=== PATIENT | male | born 1995 | race Caucasian/White ===

== ENCOUNTER 2020-10-29 16:07 | Emergency (ER) | payer BC ==
[2020-10-29] MEDS ORDERED: HYDROmorphone 1 MG/ML 1 ML SYRINGE IVP STA (16:49)
--- NOTE | 2020-10-29 16:55 | ED ---
Skin/Abscess/FB HPI - General Chief complaint: Skin/Abscess/Foreign Body Stated complaint: nail through hand Time Seen by Provider: 10/29/20 16:46 Source: patient, RN notes reviewed Mode of arrival: ambulatory Limitations: no limitations - History of Present Illness Initial comments: A showed a 24-year-old male presents to emergency department with a left air nailer and nail through his left thumb. Hethat he went to the urgent care before coming to emergency department with a couple x-rays and updated his tetanus vaccine. He noted that he was trying to build shelves at home when he actually shot a nail through his left thumb. He states that his pain is currently an 8 out of 10 that is constant and progressively getting worse as the adrenaline wears off. He denied any ALLERGIES to medications. He denied any loss of sensation. He is stable was thumb with pain while the nail still in it. He denied any weakness chest pain shortness breath headache nausea vomiting diarrhea constipation fever fatigue chills. - Related Data Previous Rx's Medication Instructions Recorded Cephalexin [Keflex] 500 mg PO Q6HR #40 cap 10/29/20 Allergies Allergy/AdvReac Type Severity Reaction Status Date / Time No Known Allergies Allergy Verified 10/29/20 17:34 Review of Systems ROS Statement: Those systems with pertinent positive or pertinent negative responses have been documented in the HPI. ROS Other: All systems not noted in ROS Statement are negative. Past Medical History Past Medical History: No Reported History History of Any Multi-Drug Resistant Organisms: None Reported Past Surgical History: No Surgical Hx Reported Past Psychological History: No Psychological Hx Reported Smoking Status: Never smoker Past Alcohol Use History: Occasional Past Drug Use History: Marijuana General Exam Limitations: no limitations General appearance: alert, in no apparent distress Head exam: Present: atraumatic, normocephalic, normal inspection Eye exam: Present: normal appearance, PERRL, EOMI. Absent: scleral icterus, conjunctival injection, periorbital swelling ENT exam: Present: normal exam, mucous membranes moist Neck exam: Present: normal inspection. Absent: tenderness, meningismus, lymphadenopathy Respiratory exam: Present: normal lung sounds bilaterally. Absent: respiratory distress, wheezes, rales, rhonchi, stridor Cardiovascular Exam: Present: regular rate, normal rhythm, normal heart sounds. Absent: systolic murmur, diastolic murmur, rubs, gallop, clicks GI/Abdominal exam: Present: soft, normal bowel sounds. Absent: distended, tenderness, guarding, rebound, rigid Extremities exam: Present: normal inspection, full ROM, normal capillary refill, other (A she has a air nailer nail penetrating the entire thickness of his left thumb. Minimal blood.). Absent: tenderness, pedal edema, joint swelling, calf tenderness Neurological exam: Present: alert, oriented X3, CN II-XII intact Psychiatric exam: Present: normal affect, normal mood Skin exam: Present: warm, dry, intact, normal color. Absent: rash Course Vital Signs 10/29/20 16:15 Temperature 98.3 F Pulse Rate 60 Respiratory 16 Rate Blood Pressure 137/82 O2 Sat by Pulse 99 Oximetry Procedures - Forgein Body Removal Soft Tissue Consent Obtained: verbal consent Site: hand Anesthetic Used: lidocaine 1% Foreign Body Suspected: Metal Foreign Body Removed: yes Foreign Body Removal Technique: Instrumentation Complications: pain Patient Tolerated Procedure: well, no complications Medical Decision Making - Medical Decision Making 4-year-old male with nail penetrating fully through his left thumb. Left hand x-ray, 1 mg of Dilaudid ordered. Patient requesting more pain medication before nail removal. 1% lidocaine was used for a digital block of the left thumb. Pliers were used to remove the nail from the thumb. Patient tolerated procedure well. Case discussed with Dr. Israel, decided after removing the patient to discharge h ome on antibiotics. - Radiology Data Radiology results: report reviewed, image reviewed Left hand x-ray: Nail through the distal phalanx of left thumb, DIP appears intact. Disposition Clinical Impression: Foreign body (FB) in soft tissue Disposition: HOME SELF-CARE Condition: Stable Instructions (If sedation given, give patient instructions): Soft Tissue Foreign Body (ED) Additional Instructions: Please return to the Emergency Department if symptoms worsen or any other concerns. Follow-up with primary care in 2-5 days. Take antibiotics as prescribed until complete. Take [id number] pain medication as needed for symptom management. Keep thumb covered and clean dry dressing until exterior wounds heal. Is patient prescribed a controlled substance at d/c from ED?: No Referrals: Ha Smith DO [Primary Care Provider] - 1-2 days Time of Disposition: 18:24
--- NOTE | 2020-10-29 17:38 | XR ---
EXAMINATION TYPE: XR hand complete LT DATE OF EXAM: 10/29/2020 CLINICAL HISTORY: Trauma. TECHNIQUE: Frontal, lateral and oblique images of the left hand are obtained. COMPARISON: None. FINDINGS: There is a nail through the distal left thumb near the joint. The nail appears to traverse the distal phalanx. There is a fracture fragment seen in the volar aspect. The distal interphalangeal joint martinez ears intact. There is soft tissue swelling. IMPRESSION: Nail through the distal phalanx of the left thumb. The DIP joint in the left thumb appear s normal.
[2020-10-29] MEDS ORDERED: LIDOCAINE 1% INJ 10MG/ML (20 ML MDV) SQ ONE (17:39)
[2020-10-29] MEDS ORDERED: MORPHINE SULFATE 4 MG/ML SYRINGE IVP STA (17:54)
[2020-10-29 19:27] VITALS: BP 115/96; PULSE 78; RESP 18; TEMP 98.2
== END 2020-10-29 18:37 | disposition home or self-care (01) ==
LOC: EC 16:07
DX: M79.5 Residual foreign body in soft tissue (principal)
CPT/HCPCS: 73130; 99283; 20520; 96374; 96375; J2270; J2001; J1170